=== PATIENT | male | born 1940 | race Caucasian/White ===

== ENCOUNTER 2025-04-01 22:43 | Inpatient (IN) ==
[2025-04-01 23:50] LABS: Appearance Urine Clear (Clear); Bacteria Urine Automated None Seen (None Seen); Cast Urine Automated 0-2 /lpf (0-2); Epithelial Cell Urine Auto 0-2 /hpf (0-2); Glucose Urine UA 3+ (Negative); RBC Urine Automated 0-2 /hpf (0-2); WBC Urine Automated 0-5 /hpf (0-5)
[2025-04-01 23:58] LABS: Hematocrit (blood only) 44.7 % (42.0-52.0); Hemoglobin 15.6 g/dl (14.0-18.0); Immature Granulocytes # (auto) 0.01 K/uL (0.01-0.20); Immature Granulocytes % (auto) 0.2 %; Mean Corpuscular Hemoglobin 32.2 pg (25.0-34.0); Mean Corpuscular Volume 92.4 fL (80.0-100.0); Platelet Count 164 K/uL (130-400); RDW Standard Deviation 44.1 fL (36.4-46.3); Red Blood Count 4.84 M/uL (4.70-6.10); White Blood Count 6.14 K/ul (4.8-10.8)
[2025-04-01 23:59] LABS: Base Excess VBG 1.0 mEq/L; HCO3 VBG 26 mmol/L; Oxygen Saturation VBG 90.9 %; PCO2 VBG 42 mmHg (38-50); PO2 VBG 57 mmHg; pH VBG 7.40 (7.36-7.41)
[2025-04-02 00:06] LABS: Alanine Aminotransferase 13.0 U/L (7-52); Albumin Globulin Ratio 1.2 (0.9-2); Alkaline Phosphatase 63.0 U/L (34-104); Anion Gap 10.0 (3-11); Bilirubin,Total 0.7 mg/dl (0.2-1.0); Blood Urea Nitrogen 20.0 mg/dl (6-23); Calcium 9.2 mg/dl (8.6-10.3); Carbon Dioxide 24.0 mmol/L (21-32); Chloride 102.0 mmol/L (98-107); Creatinine Clr Calc Pharmacy 48.4 ml/min; Globulin 3.4 gm/dl (2.5-4.0); Glucose 189.0 mg/dl (70-99(Fasting)); Lipase 57.0 U/L (11-82); Magnesium 2.0 mg/dl (1.7-2.4); Potassium 4.3 mmol/L (3.5-5.1); Sodium 136.0 mmol/L (136-145); Total Protein 7.6 gm/dl (6.0-8.3)
[2025-04-02 00:21] LABS: Thyroid Stimulating Hormone 1.885 uIu/ml (0.300-4.500)
[2025-04-02 00:26] LABS: INR 1.0 (0.9-1.1); Prothrombin Time 11.2 Seconds (9.0-12.0)
--- NOTE | 2025-04-02 00:35 | Emergency Department Note ---
Impression & Plan Dyspnea, Confusion, Abnormal ECG ED Provider Note ED Provider Note NAME: LIYAH NEVAREZ AGE:85 SEX: Male : 1940 ARRIVES VIA: private vehicle INFORMANT: Patient ED PROVIDER(s): Pau Haddad DO CHIEF COMPLAINT: difficulty breathing HPI: This is an 85-year-old male who presents emergency department with his at bedside due to concern for difficulty breathing. Patient states he is had increased cough and increased phlegm over the last several weeks. He denies fevers or chills. He states his breathing is harder when he lays down. He states the phlegm is typically clear or white, no hemoptysis noted. He denies any chest pain, abdominal pain, vomiting, change in urine or change in stools, or leg swelling. No recent change in medications or known sick contacts. No history of asthma or COPD. No trouble with seasonal allergies typically. at bedside also states he has been more confused in the last 2 weeks. She states that his breathing appears irregular at times and he will suddenly gasp. PAST MEDICAL HISTORY:See Below PAST SURGICAL HISTORY:See Below FAMILY HISTORY:See Below SOCIAL HISTORY:See Below HOME MEDICATIONS:See Below ALLERGIES:See Below VITALS:See Below PHYSICAL EXAMINATION: GENERAL: alert, well appearing, well nourished, no distress, non-toxic EYE EXAM: normal conjunctiva, PERRL and EOM's grossly intact OROPHARYNX: no exudate, no erythema, lips, buccal mucosa, and tongue normal and mucous membranes are moist NECK: supple, no nuchal rigidity, no adenopathy, non-tender LUNGS: Clear to auscultation. Normal chest wall mechanics, no w/r/r, irregular breathing pattern ranging from 6-17 with intermittent gasping HEART: no murmurs, S1 normal and S2 normal ABDOMEN: abdomen soft, non-tender, normo-active bowel sounds, no masses, no rebound or guarding. SKIN: no rashes, petechiae, orbruising UPPER EXTREMITIES: upper extremities are grossly normal. FROM, nml pulses b/l. LOWER EXTREMITIES: No pitting edema. FROM, nml pulses b/l. NEURO EXAM: Patient can answer questions, has difficulty remembering medical history and recent chronology of events, intermittently appears dazed, cranial nerves II-XII grossly intact, normal speech, no facial droop,nogross weakness of arms, no gross weakness of legs. Gross sensation intact. No ataxia. Vital Signs: reviewed and remarkable Differential Diagnosis: CVA/TIA, ICH, SIENNA, PNA, UTI, medication ADR, bacteremia/sepsis, occult trauma, hypoxia, hypercapnia, electrolyte abnormality, as well as others were considered MEDICAL DECISION MAKING: This is an 85-year-old male presents emergency department with at bedside due to concern for confusion and difficulty breathing. Patient was afebrile and hemodynamically stable. Labs drawn and sent, IV established, EKG and chest x- ray performed at bedside and interpreted by me and the patient was monitored in telemetry. Nasal swab obtained and sent additionally. Due to reported confusion by , patient sent for CT of head additionally. Patient's labs and imaging here are reassuring including negative troponin, negative BNP, negative bio fire. 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 Patient with no prior pulmonary history. Due to concern for confusion and irregular breathing, I discussed with the further inpatient evaluation and she was in agreement. Case discussed with the hospitalist team for additional evaluation and management. Consultation(s): 0200: Discussed with Dr. Trejo, [facility] hospitalist team, for additional evaluation. ER Treatment Provided: See below Diagnostics Interpreted By Me: -ECG: Normal sinus at 76 with first-degree AV block, right bundle branch block, normal QTc, nonspecific ST/T wave changes EKG #2: Normal sinus at 69 with a first-degree AV block, right bundle branch block, normal QTc, ST depression noted in V3 through V6 which is new compared to prior -Cardiac Monitoring: An order was placed for continuous cardiac monitoring. The monitor shows a rate of 72 with normal sinus rhythm. -Laboratory studies: As stated above and show below. -Imaging studies: X-ray Chest: A single view study of the chest was reviewed and was negative for cardiomegaly, focal infiltrate, effusion, pulmonary edema, or wide mediastinum. ct head: no ich Triage Nursing Note Reviewed Prior/Outside Records Reviewed Past Med/Surg History Problem List (Updated 04/02/25 @ 01:54 by Pau Haddad DO) Abnormal ECG (Acute) Confusion (Acute) Dyspnea (Acute) Diabetes (Acute) Hypertension (Acute) Hyperlipidemia (Acute) Chills (Acute) Cholelithiasis (Acute) Influenza-like symptoms (Acute) Social History Smoking Status: Unknown if ever smoked Tobacco Type: Smokeless Tobacco (Dip or Chew) Second Hand Exposure: No; Do You Dip or Chew Tobacco: No; Hx Alcohol Use: No Hx Substance Use: No Preferred Language: German Communication Ability: Effective 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 Beliefs That Will Affect Care: None Current Living Situation: Spouse Feels Safe at Home: Yes Assistive Devices: None Allergies Allergies Allergy/AdvReac Type Severity Reaction Status Date / Time Penicillins Allergy Mild COLD Verified 04/01/25 22:56 BLISTERS latex AdvReac Intermediate SEE COMMENT Verified 04/01/25 23:34 Home Meds Home Medications Medication Instructions Recorded Confirmed atenolol 25 mg tablet 12.5 mg PO DAILY 04/01/25 04/01/25 atorvastatin 40 mg tablet 40 mg PO DAILY 04/01/25 04/01/25 cholecalciferol (vitamin D3) 25 25 mcg PO DAILY 04/01/25 04/01/25 mcg (1,000 unit) capsule (Vitamin D3) dapagliflozin propanediol 10 mg 10 mg PO DAILY 04/01/25 04/01/25 tablet (Farxiga) dulaglutide 4.5 mg/0.5 mL 4.5 mg subcut WK 04/01/25 04/01/25 subcutaneous pen injector (Trulicity) escitalopram oxalate 10 mg tablet 10 mg PO DAILY 04/01/25 04/01/25 famotidine 20 mg tablet 20 mg PO DAILY 04/01/25 04/01/25 ipratropium bromide 21 mcg (0.03 2 spray intranasal TID PRN Runny 04/01/25 04/01/25 %) nasal spray Nose metformin 500 mg tablet,extended 500 mg PO BID 04/01/25 04/01/25 release 24 hr thiamine HCl (vitamin B1) 100 mg 100 mg PO DAILY 04/01/25 04/01/25 tablet (Vitamin B-1) trazodone 50 mg tablet 150 mg PO HS 04/01/25 04/01/25 Results & Data (ED) Vital Signs Vital Signs - 24 hr 04/01/25 22:48 04/01/25 22:58 04/01/25 22:58 Temperature 37 C Temperature Source Temporal Artery Scan Pulse Rate 79 77 Respiratory Rate 16 Respiratory Effort / Characteristics Non-Labored Spontaneous Non-Labored Respiratory Depth Normal Normal Respiratory Pattern Regular Blood Pressure 152/89 H Blood Pressure [Right Arm] Blood Pressure Mean 110 Blood Pressure Mean [Right Arm] Pulse Oximetry 96 Oxygen Delivery Method Room Air Nasal Cannula Room Air Sepsis Recent Fever Within 48 Hours No Sepsis New/Unexplained Change in Mental Status Yes Sepsis Action Taken by Nursing No Action Required 04/01/25 23:01 04/01/25 23:04 04/01/25 23:30 Temperature 36.8 C Temperature Source Oral Pulse Rate 73 Respiratory Rate 18 12 Respiratory Effort / Characteristics Spontaneous Respiratory Depth Normal Respiratory Pattern Regular Blood Pressure 175/91 H Blood Pressure [Right Arm] 161/100 H Blood Pressure Mean 112 Blood Pressure Mean [Right Arm] 120 Pulse Oximetry 97 97 95 Oxygen Delivery Method Room Air Room Air Sepsis Recent Fever Within 48 Hours Sepsis New/Unexplained Change in Mental Status Sepsis Action Taken by Nursing 04/01/25 23:42 04/02/25 00:30 04/02/25 01:00 Temperature Temperature Source Pulse Rate 76 68 69 Respiratory Rate 15 14 12 Respiratory Effort / Characteristics Respiratory Depth Respiratory Pattern Blood Pressure 167/99 H 164/97 H Blood Pressure [Right Arm] Blood Pressure Mean 130 124 Blood Pressure Mean [Right Arm] Pulse Oximetry 96 98 Oxygen Delivery Method Sepsis Recent Fever Within 48 Hours Sepsis New/Unexplained Change in Mental Status Sepsis Action Taken by Nursing Laboratory Data 04/02/25 04:10 04/02/25 04:10 Lab Results 04/01/25 04/01/25 04/01/25 Range/Units 23:02 23:06 23:10 WBC 6.14 (4.8-10.8) K/ul RBC 4.84 (4.70-6.10) M/uL Hgb 15.6 (14.0-18.0) g/dl Hct 44.7 (42.0-52.0) % MCV 92.4 (80.0-100.0) fL MCH 32.2 (25.0-34.0) pg MCHC 34.9 (32.0-36.0) g/dL RDW Std Deviation 44.1 (36.4-46.3) fL RDW Coeff of Rudy 13.0 (11.5-14.5) % Plt Count 164 (130-400) K/uL MPV 9.8 (9.4-12.4) fL Immature Gran % (Auto) 0.2 % Neut % (Auto) 49.1 % Lymph % (Auto) 38.6 % [place] % (Auto) 9.0 % Eos % (Auto) 2.4 % Baso % (Auto) 0.7 % Neut # (Auto) 3.02 (1.40-6.50) K/uL Lymph # (Auto) 2.37 (1.20-3.40) K/uL [place] # (Auto) 0.55 (0.11-0.59) K/uL Eos # (Auto) 0.15 (0.00-0.50) K/uL Baso # (Auto) 0.04 (0.00-0.20) K/uL Immature Gran # (Auto) 0.01 (0.01-0.20) K/uL PT 11.2 (9.0-12.0) Seconds INR 1.0 (0.9-1.1) VBG pH (7.36-7.41) VBG pCO2 (38-50) mmHg VBG pO2 mmHg VBG HCO3 mmol/L VBG O2 Saturation % VBG Base Excess mEq/L Sodium 136 (136-145) mmol/L Potassium 4.3 (3.5-5.1) mmol/L Chloride 102 (98-107) mmol/L Carbon Dioxide 24 (21-32) mmol/L Anion Gap 10 (3-11) BUN 20 (6-23) mg/dl Creatinine 1.21 (0.6-1.4) mg/dl Est Cr Clr Drug Dosing 48.4 ml/min eGFR 59.04 BUN/Creatinine Ratio 16.5 (10-20) Glucose 189 H (70-99(Fasting)) mg/dl POC Glucose 174 H (70-99) mg/dl Calcium 9.2 (8.6-10.3) mg/dl Magnesium 2.0 (1.7-2.4) mg/dl Total Bilirubin 0.7 (0.2-1.0) mg/dl AST 23 (13-39) U/L ALT 13 (7-52) U/L Alkaline Phosphatase 63 (34-104) U/L Troponin I High Sens 8.7 (0-20) pg/ml B-Natriuretic Peptide (0-100) pg/ml Total Protein 7.6 (6.0-8.3) gm/dl Albumin 4.2 (3.4-5.0) gm/dl Globulin 3.4 (2.5-4.0) gm/dl Albumin/Globulin Ratio 1.2 (0.9-2) Lipase 57 (11-82) U/L TSH 1.885 (0.300-4.500) uIu/ml Urine Color Yellow Urine Appearance Clear (Clear) Urine pH 5.5 (4.5-7.5) Ur Specific [place] 1.029 (1.000-1.030) Urine Protein 1+ H (Negative) Urine Glucose (UA) 3+ H (Negative) Urine Ketones Negative (Negative) Urine Blood Negative (Negative) Urine Nitrite Negative (Negative) Urine Bilirubin Negative (Negative) Urine Urobilinogen Negative (Negative) Ur Leukocyte Esterase Negative (Negative) Urine WBC (Auto) 0-5 (0-5) /hpf Urine RBC (Auto) 0-2 (0-2) /hpf U Hyaline Cast (Auto) 0-2 (0-2) /lpf U Epithel Cells (Auto) 0-2 (0-2) /hpf Urine Bacteria (Auto) None Seen (None Seen) Urine Comment Adenovirus (PCR) (NotDetected) B. pertussis DNA (PCR) (NotDetected) B.parapertussis DNA PCR (NotDetected) C. pneumoniae DNA (PCR) (NotDetected) Coronavirus OC43 (PCR) (NotDetected) Coronavirus HKU1 (PCR) (NotDetected) Coronavirus 229E (PCR) (NotDetected) SARS-CoV-2 (PCR) (NotDetected) Coronavirus NL63 (PCR) (NotDetected) Human Metapneumovir PCR (NotDetected) Influenza Type A (PCR) (NotDetected) Influenza Type B (PCR) (NotDetected) M. pneumoniae (PCR) (NotDetected) Parainfluenza 1 (PCR) (NotDetected) Parainfluenza 2 (PCR) (NotDetected) Parainfluenza 3 (PCR) (NotDetected) Parainfluenza 4 (PCR) (NotDetected) RSV (PCR) (NotDetected) Entero/Rhino (PCR) (NotDetected) 04/01/25 04/02/25 Range/Units 23:38 01:18 WBC (4.8-10.8) K/ul RBC (4.70-6.10) M/uL Hgb (14.0-18.0) g/dl Hct (42.0-52.0) % MCV (80.0-100.0) fL MCH (25.0-34.0) pg MCHC (32.0-36.0) g/dL RDW Std Deviation (36.4-46.3) fL RDW Coeff of Rudy (11.5-14.5) % Plt Count (130-400) K/uL MPV (9.4-12.4) fL Immature Gran % (Auto) % Neut % (Auto) % Lymph % (Auto) % [place] % (Auto) % Eos % (Auto) % Baso % (Auto) % Neut # (Auto) (1.40-6.50) K/uL Lymph # (Auto) (1.20-3.40) K/uL [place] # (Auto) (0.11-0.59) K/uL Eos # (Auto) (0.00-0.50) K/uL Baso # (Auto) (0.00-0.20) K/uL Immature Gran # (Auto) (0.01-0.20) K/uL PT (9.0-12.0) Seconds INR (0.9-1.1) VBG pH 7.40 (7.36-7.41) VBG pCO2 42 (38-50) mmHg VBG pO2 57 mmHg VBG HCO3 26 mmol/L VBG O2 Saturation 90.9 % VBG Base Excess 1.0 mEq/L Sodium (136-145) mmol/L Potassium (3.5-5.1) mmol/L Chloride (98-107) mmol/L Carbon Dioxide (21-32) mmol/L Anion Gap (3-11) BUN (6-23) mg/dl Creatinine (0.6-1.4) mg/dl Est Cr Clr Drug Dosing ml/min eGFR BUN/Creatinine Ratio (10-20) Glucose (70-99(Fasting)) mg/dl POC Glucose (70-99) mg/dl Calcium (8.6-10.3) mg/dl Magnesium (1.7-2.4) mg/dl Total Bilirubin (0.2-1.0) mg/dl AST (13-39) U/L ALT (7-52) U/L Alkaline Phosphatase (34-104) U/L Troponin I High Sens 9.2 (0-20) pg/ml B-Natriuretic Peptide 26 (0-100) pg/ml Total Protein (6.0-8.3) gm/dl Albumin (3.4-5.0) gm/dl Globulin (2.5-4.0) gm/dl Albumin/Globulin Ratio (0.9-2) Lipase (11-82) U/L TSH (0.300-4.500) uIu/ml Urine Color Urine Appearance (Clear) Urine pH (4.5-7.5) Ur Specific [place] (1.000-1.030) Urine Protein (Negative) Urine Glucose (UA) (Negative) Urine Ketones (Negative) Urine Blood (Negative) Urine Nitrite (Negative) Urine Bilirubin (Negative) Urine Urobilinogen (Negative) Ur Leukocyte Esterase (Negative) Urine WBC (Auto) (0-5) /hpf Urine RBC (Auto) (0-2) /hpf U Hyaline Cast (Auto) (0-2) /lpf U Epithel Cells (Auto) (0-2) /hpf Urine Bacteria (Auto) (None Seen) Urine Comment Adenovirus (PCR) Not Detected (NotDetected) B. pertussis DNA (PCR) Not Detected (NotDetected) B.parapertussis DNA PCR Not Detected (NotDetected) C. pneumoniae DNA (PCR) Not Detected (NotDetected) Coronavirus OC43 (PCR) Not Detected (NotDetected) Coronavirus HKU1 (PCR) Not Detected (NotDetected) Coronavirus 229E (PCR) Not Detected (NotDetected) SARS-CoV-2 (PCR) Not Detected (NotDetected) Coronavirus NL63 (PCR) Not Detected (NotDetected) Human Metapneumovir PCR Not Detected (NotDetected) Influenza Type A (PCR) Not Detected (NotDetected) Influenza Type B (PCR) Not Detected (NotDetected) M. pneumoniae (PCR) Not Detected (NotDetected) Parainfluenza 1 (PCR) Not Detected (NotDetected) Parainfluenza 2 (PCR) Not Detected (NotDetected) Parainfluenza 3 (PCR) Not Detected (NotDetected) Parainfluenza 4 (PCR) Not Detected (NotDetected) RSV (PCR) Not Detected (NotDetected) Entero/Rhino (PCR) Not Detected (NotDetected) Administered Medications Insulin Aspart (Insulin Aspart Per Unit Charge) 0 units SC ACHS MAURICE Stop: 05/02/25 04:00 Last Admin: 04/02/25 05:04 Dose: 1 units Documented By: LUTHER Co-signed By: HD Discontinued Medications Albuterol (Albut/Ipratrop 3mg/0.5mg Neb 3 Ml Vial) 3 ml NEB NOW STA; Protocol Stop: 04/02/25 04:25 Last Admin: 04/02/25 04:36 Dose: 3 ml Documented By: YVETTE Ioversol (Optiray 320 125ml) 125 ml IV ONCE ONE Stop: 04/02/25 03:27 Last Admin: 04/02/25 03:26 Dose: 118 ml Documented By: SHERYL Lisinopril (') 2.5 mg PO ONE STA Stop: 04/02/25 02:51 Last Admin: 04/02/25 03:20 Dose: 2.5 mg Documented By: BALDO Losartan Potassium (Losartan Potassium 25 Mg Tab) 25 mg PO NOW STA Stop: 04/02/25 04:16 Last Admin: 04/02/25 04:59 Dose: 25 mg Documented By: LUTHER Metoprolol Tartrate (Metoprolol Tartrate 1 Mg/Ml Vial) 2.5 mg IV NOW STA Stop: 04/02/25 02:02 Last Admin: 04/02/25 02:27 Dose: 2.5 mg Documented By: BALDO Pantoprazole Sodium (Pantoprazole 40 Mg Tab) 40 mg PO NOW STA Stop: 04/02/25 04:23 Last Admin: 04/02/25 04:59 Dose: 40 mg Documented By: LUTHER Imaging Data Radiologist's Impression: Chest X-Ray 04/01/25 23:31 Exam(s): XR CXR 1 VIEW EXAM: XR Chest, 1 View CLINICAL HISTORY: Reason for exam: sob. TECHNIQUE: Frontal view of the chest. COMPARISON: Chest x-ray 09/03/2024. FINDINGS: Lungs/Pleural space: Stable pleural thickening right lower lung laterally. No focal infiltrate or new finding. No pleural effusion or pneumothorax. Heart: Stable cardiomegaly. Mediastinum: Unremarkable. Bones/Soft Tissues: No acute abnormality. IMPRESSION: 1. No acute process, and no change. Electronically signed by: Corry Murrell M.D. 04/02/25 01:[address] 04/01/25 23:31 EXAM: CT head/brain wo con CLINICAL HISTORY: ams TECHNIQUE: Axial non-contrast CT scan of the brain was performed from the skull base to the high parietal region. One of the following dose reduction techniques were utilized for this exam: Automated exposure control, adjustment of the mA and/or kV according to patient size, use of iterative reconstruction. CTDI: 37.19 mGy, DLP: 625.80 mGy.cm. COMPARISON: CT 09/03/2024 FINDINGS: Brain Parenchyma: Normal attenuation of the cerebellum and brainstem. No evidence of acute infarct, hemorrhage, or mass effect. Bilateral punctate basal ganglia calcification. stable Hypodensities are noted in bilateral periventricular white matter. Microvascular ischemic changes. stable. Ventricular System and Subarachnoid Spaces: The ventricles, basilar cisterns and sulci are prominent. Age-related cerebral atrophy No evidence of subarachnoid hemorrhage or extra-axial fluid collections. Cerebellum and Brainstem: No masses, lesions, or areas of abnormal density. Orbits: Normal appearance of the globes, optic nerves, and extraocular muscles. No evidence of orbital masses or abnormal density. Sinuses: Minimal mucosal thickening is noted in the left maxillary sinus. The rest of the paranasal sinuses are unremarkable Mastoid Air Cells: Clear mastoid air cells. No evidence of mastoiditis. Skull: Normal skull morphology. IMPRESSION: 1. No acute intracranial hemorrhage or established infarct. 2. Microvascular ischemic changes and cerebral atrophy. 3. No significant interval change. Early changes of a stroke may not be detected on a CT scan. If strong clinical suspicion of stroke, MRI DWI brain is recommended. Electronically signed by Peterson Barboza 04-02-2025 01:03 AM Discharge Plan Visit Data Chief Complaint: Shortness of Breath/Dyspnea Stated Complaint: SOB, CONFUSION ED Provider: Pau Haddad Discharge Problem: Dyspnea, Confusion, Abnormal ECG Patient Disposition: Admitted As Inpatient Condition: Fair Discharge Instructions Interventions: ED Discharge Assessment Last Done: 04/02/25 03:36
[2025-04-02 00:44] LABS: Chlamydia pneumoniae PCR Not Detected (NotDetected); Coronavirus 229E PCR Not Detected (NotDetected); Coronavirus CoV-2 (COVID19)PCR Not Detected (NotDetected); Coronavirus HKU1 PCR Not Detected (NotDetected); Coronavirus NL63 PCR Not Detected (NotDetected); Coronavirus OC43PCR Not Detected (NotDetected); Human Metapneumovirus PCR Not Detected (NotDetected); Parainfluenza Virus 1 PCR Not Detected (NotDetected); Parainfluenza Virus 2 PCR Not Detected (NotDetected); Parainfluenza Virus 3 PCR Not Detected (NotDetected); Parainfluenza Virus 4 PCR Not Detected (NotDetected); Respiratory Syncytial VirusPCR Not Detected (NotDetected); Rhinovirus/Enterovirus PCR Not Detected (NotDetected)
--- NOTE | 2025-04-02 01:03 | CT Scan Report ---
EXAM: CT head/brain wo con CLINICAL HISTORY: ams TECHNIQUE: Axial non-contrast CT scan of the brain was performed from the skull base to the high parietal region. One of the following dose reduction techniques were utilized for this exam: Automated exposure control, adjustment of the mA and/or kV according to patient size, use of iterative reconstruction. CTDI: 37.19 mGy, DLP: 625.80 mGy.cm. COMPARISON: CT 09/03/2024 FINDINGS: Brain Parenchyma: Normal attenuation of the cerebellum and brainstem. No evidence of acute infarct, hemorrhage, or mass effect. Bilateral punctate basal ganglia calcification. stable Hypodensities are noted in bilateral periventricular white matter. Microvascular ischemic changes. stable. Ventricular System and Subarachnoid Spaces: The ventricles, basilar cisterns and sulci are prominent. Age-related cerebral atrophy No evidence of subarachnoid hemorrhage or extra-axial fluid collections. Cerebellum and Brainstem: No masses, lesions, or areas of abnormal density. Orbits: Normal appearance of the globes, optic nerves, and extraocular muscles. No evidence of orbital masses or abnormal density. Sinuses: Minimal mucosal thickening is noted in the left maxillary sinus. The rest of the paranasal sinuses are unremarkable Mastoid Air Cells: Clear mastoid air cells. No evidence of mastoiditis. Skull: Normal skull morphology. IMPRESSION: 1. No acute intracranial hemorrhage or established infarct. 2. Microvascular ischemic changes and cerebral atrophy. 3. No significant interval change. Early changes of a stroke may not be detected on a CT scan. If strong clinical suspicion of stroke, MRI DWI brain is recommended. Electronically signed by Peterson Barboza 04-02-2025 01:03 AM
--- NOTE | 2025-04-02 01:23 | XRay Report ---
Exam(s): XR CXR 1 VIEW EXAM: XR Chest, 1 View CLINICAL HISTORY: Reason for exam: sob. TECHNIQUE: Frontal view of the chest. COMPARISON: Chest x-ray 09/03/2024. FINDINGS: Lungs/Pleural space: Stable pleural thickening right lower lung laterally. No focal infiltrate or new finding. No pleural effusion or pneumothorax. Heart: Stable cardiomegaly. Mediastinum: Unremarkable. Bones/Soft Tissues: No acute abnormality. IMPRESSION: 1. No acute process, and no change. Electronically signed by: Corry Murrell M.D. 04/02/25 01:22 AM
--- NOTE | 2025-04-02 02:07 | History & Physical Report ---
Date of Service April 02, 2025 Assessment & Plan (1) Dyspnea: Plan: Assessment and plan below following discussion of case with ED provider and reviewing patient history/pertinent normal/abnormal diagnostic test results. 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 Basal bolus insulin, ISS BG goal 110-140, carb count coverage PT OT eval DVT prophylaxis. Lovenox subcu Full code Patient requesting updates from providers. Ms. Kamila Mishannandaphnie, contact #[phone]. Text document was generated using [employer] voice recognition software. It may contain grammatical or spelling errors. Kindly contact undersigned for clarification of any documentation item in question. History of Present Illness Chief Complaint: SOB, confusion Primary Care Provider: Sasha Martin, History obtained from patient, family, and records. Limited history from patient secondary to disoriented state. Medical history significant for hypertension, hyperlipidemia, DM2 on oral medications, GERD, mood disorder, allergic rhinitis, past alcohol use. Patient has had worsening congestion/phlegm symptoms over the last few months as per family. Sensation of choking disrupting sleep. Minimal improvement with outpatient courses of Flonase, ipratropium nasal spray, Claritin for possible allergic rhinitis as per . Last few days, patient noted to be more confused. Patient complaining of SOB without chest pain. Congestion symptoms worse. Denies fluid retention. Denies headache symptoms. Denies abdominal pain. No new medications. Patient not sleeping well at night as per . No witnessed apneic episodes at home although patient and have separate bedrooms. SBP 170s at home tonight which is unusual as per . Patient brought to ER for evaluation. Highest SBP of 190s documented at the ER. 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 Allergies Allergy/AdvReac Type Severity Reaction Status Date / Time Penicillins Allergy Mild COLD Verified 04/01/25 22:56 BLISTERS latex AdvReac Intermediate SEE COMMENT Verified 04/01/25 23:34 Home Medications Medication Instructions Recorded Confirmed Type atenolol 25 mg tablet 12.5 mg PO DAILY 04/01/25 04/01/25 History atorvastatin 40 mg tablet 40 mg PO DAILY 04/01/25 04/01/25 History cholecalciferol (vitamin D3) 25 25 mcg PO DAILY 04/01/25 04/01/25 History mcg (1,000 unit) capsule (Vitamin D3) dapagliflozin propanediol 10 mg 10 mg PO DAILY 04/01/25 04/01/25 History tablet (Farxiga) dulaglutide 4.5 mg/0.5 mL 4.5 mg subcut WK 04/01/25 04/01/25 History subcutaneous pen injector (Trulicity) escitalopram oxalate 10 mg tablet 10 mg PO DAILY 04/01/25 04/01/25 History famotidine 20 mg tablet 20 mg PO DAILY 04/01/25 04/01/25 History ipratropium bromide 21 mcg (0.03 2 spray intranasal TID PRN Runny 04/01/25 04/01/25 History %) nasal spray Nose metformin 500 mg tablet,extended 500 mg PO BID 04/01/25 04/01/25 History release 24 hr thiamine HCl (vitamin B1) 100 mg 100 mg PO DAILY 04/01/25 04/01/25 History tablet (Vitamin B-1) trazodone 50 mg tablet 150 mg PO HS 04/01/25 04/01/25 History Past Med/Surg History Problem List (Updated 04/02/25 @ 01:54 by Pau Haddad DO) Abnormal ECG (Acute) Confusion (Acute) Dyspnea (Acute) Diabetes (Acute) Hypertension (Acute) Hyperlipidemia (Acute) Chills (Acute) Cholelithiasis (Acute) Influenza-like symptoms (Acute) Social History Smoking Status: Current every day smoker Tobacco Type: Smokeless Tobacco (Dip or Chew) Preferred Language: Romansh Feels Safe at Home: Yes Review of Systems Review of Systems: As per HPI, all other systems reviewed and negative Physical Exam Physical Exam: GENERAL: Disoriented, pleasant, no respiratory distress SKIN: Normal color, warm HEENT: Alopecia, pink palpebral conjunctivae, no ptosis, dry buccal mucosa NECK : Supple, no tenderness CHEST : Decreased breath sounds, no wheezes, no tenderness HEART : RRR, no obvious murmurs ABDOMEN: Some distention, nontender EXTREMITIES : No LE swelling/tenderness, palpable pulses, no other conspicuous deformities noted NEUROLOGIC : Disoriented, no facial asymmetry, no other gross focality Results & Data Results & Data Vital Signs (Past 12 Hours) Vital Signs Temp Pulse Resp BP BP Pulse Ox O2 Del Method 04/02/25 01:00 69 12 164/97 H 98 04/02/25 00:30 68 14 167/99 H 96 04/01/25 23:42 76 15 04/01/25 23:30 73 12 175/91 H 95 04/01/25 23:04 97 Room Air 04/01/25 23:01 36.8 C 18 161/100 H 97 Room Air 04/01/25 22:58 77 04/01/25 22:58 Room Air 04/01/25 22:48 37 C 79 16 152/89 H 96 Room Air, Nasal Cannula Laboratory Results Laboratory Results WBC 6.14 K/ul (4.8-10.8) 04/01/25 23:06 RBC 4.84 M/uL (4.70-6.10) 04/01/25 23:06 Hgb 15.6 g/dl (14.0-18.0) 04/01/25 23:06 Hct 44.7 % (42.0-52.0) 04/01/25 23:06 MCV 92.4 fL (80.0-100.0) 04/01/25 23:06 MCH 32.2 pg (25.0-34.0) 04/01/25 23:06 MCHC 34.9 g/dL (32.0-36.0) 04/01/25 23:06 RDW Std Deviation 44.1 fL (36.4-46.3) 04/01/25 23:06 RDW Coeff of Rudy 13.0 % (11.5-14.5) 04/01/25 23:06 Plt Count 164 K/uL (130-400) 04/01/25 23:06 MPV 9.8 fL (9.4-12.4) 04/01/25 23:06 Immature Gran % (Auto) 0.2 % 04/01/25 23:06 Neut % (Auto) 49.1 % 04/01/25 23:06 Lymph % (Auto) 38.6 % 04/01/25 23:06 Cowley % (Auto) 9.0 % 04/01/25 23:06 Eos % (Auto) 2.4 % 04/01/25 23:06 Baso % (Auto) 0.7 % 04/01/25 23:06 Neut # (Auto) 3.02 K/uL (1.40-6.50) 04/01/25 23:06 Lymph # (Auto) 2.37 K/uL (1.20-3.40) 04/01/25 23:06 Cowley # (Auto) 0.55 K/uL (0.11-0.59) 04/01/25 23:06 Eos # (Auto) 0.15 K/uL (0.00-0.50) 04/01/25 23:06 Baso # (Auto) 0.04 K/uL (0.00-0.20) 04/01/25 23:06 Immature Gran # (Auto) 0.01 K/uL (0.01-0.20) 04/01/25 23:06 PT 11.2 Seconds (9.0-12.0) 04/01/25 23:06 INR 1.0 (0.9-1.1) 04/01/25 23:06 VBG pH 7.40 (7.36-7.41) 04/01/25 23:38 VBG pCO2 42 mmHg (38-50) 04/01/25 23:38 VBG pO2 57 mmHg 04/01/25 23:38 VBG HCO3 26 mmol/L 04/01/25 23:38 VBG O2 Saturation 90.9 % 04/01/25 23:38 VBG Base Excess 1.0 mEq/L 04/01/25 23:38 Sodium 136 mmol/L (136-145) 04/01/25 23:06 Potassium 4.3 mmol/L (3.5-5.1) 04/01/25 23:06 Chloride 102 mmol/L (98-107) 04/01/25 23:06 Carbon Dioxide 24 mmol/L (21-32) 04/01/25 23:06 Anion Gap 10 (3-11) 04/01/25 23:06 BUN 20 mg/dl (6-23) 04/01/25 23:06 Creatinine 1.21 mg/dl (0.6-1.4) 04/01/25 23:06 Est Cr Clr Drug Dosing 48.4 ml/min 04/01/25 23:06 eGFR 59.04 04/01/25 23:06 BUN/Creatinine Ratio 16.5 (10-20) 04/01/25 23:06 Glucose 189 mg/dl (70-99(Fasting)) H 04/01/25 23:06 POC Glucose 174 mg/dl (70-99) H 04/01/25 23:02 Calcium 9.2 mg/dl (8.6-10.3) 04/01/25 23:06 Magnesium 2.0 mg/dl (1.7-2.4) 04/01/25 23:06 Total Bilirubin 0.7 mg/dl (0.2-1.0) 04/01/25 23:06 AST 23 U/L (13-39) 04/01/25 23:06 ALT 13 U/L (7-52) 04/01/25 23:06 Alkaline Phosphatase 63 U/L (34-104) 04/01/25 23:06 Troponin I High Sens 9.2 pg/ml (0-20) 04/02/25 01:18 B-Natriuretic Peptide 26 pg/ml (0-100) 04/01/25 23:38 Total Protein 7.6 gm/dl (6.0-8.3) 04/01/25 23:06 Albumin 4.2 gm/dl (3.4-5.0) 04/01/25 23:06 Globulin 3.4 gm/dl (2.5-4.0) 04/01/25 23:06 Albumin/Globulin Ratio 1.2 (0.9-2) 04/01/25 23:06 Lipase 57 U/L (11-82) 04/01/25 23:06 TSH 1.885 uIu/ml (0.300-4.500) 04/01/25 23:06 Urine Color Yellow 04/01/25 23:10 Urine Appearance Clear (Clear) 04/01/25 23:10 Urine pH 5.5 (4.5-7.5) 04/01/25 23:10 Ur Specific [place] 1.029 (1.000-1.030) 04/01/25 23:10 Urine Protein 1+ (Negative) H 04/01/25 23:10 Urine Glucose (UA) 3+ (Negative) H 04/01/25 23:10 Urine Ketones Negative (Negative) 04/01/25 23:10 Urine Blood Negative (Negative) 04/01/25 23:10 Urine Nitrite Negative (Negative) 04/01/25 23:10 Urine Bilirubin Negative (Negative) 04/01/25 23:10 Urine Urobilinogen Negative (Negative) 04/01/25 23:10 Ur Leukocyte Esterase Negative (Negative) 04/01/25 23:10 Urine WBC (Auto) 0-5 /hpf (0-5) 04/01/25 23:10 Urine RBC (Auto) 0-2 /hpf (0-2) 04/01/25 23:10 U Hyaline Cast (Auto) 0-2 /lpf (0-2) 04/01/25 23:10 U Epithel Cells (Auto) 0-2 /hpf (0-2) 04/01/25 23:10 Urine Bacteria (Auto) None Seen (None Seen) 04/01/25 23:10 Urine Comment 04/01/25 23:10 Adenovirus (PCR) Not Detected (NotDetected) 04/01/25 23:38 B. pertussis DNA (PCR) Not Detected (NotDetected) 04/01/25 23:38 B.parapertussis DNA PCR Not Detected (NotDetected) 04/01/25 23:38 C. pneumoniae DNA (PCR) Not Detected (NotDetected) 04/01/25 23:38 Coronavirus OC43 (PCR) Not Detected (NotDetected) 04/01/25 23:38 Coronavirus HKU1 (PCR) Not Detected (NotDetected) 04/01/25 23:38 Coronavirus 229E (PCR) Not Detected (NotDetected) 04/01/25 23:38 SARS-CoV-2 (PCR) Not Detected (NotDetected) 04/01/25 23:38 Coronavirus NL63 (PCR) Not Detected (NotDetected) 04/01/25 23:38 Human Metapneumovir PCR Not Detected (NotDetected) 04/01/25 23:38 Influenza Type A (PCR) Not Detected (NotDetected) 04/01/25 23:38 Influenza Type B (PCR) Not Detected (NotDetected) 04/01/25 23:38 M. pneumoniae (PCR) Not Detected (NotDetected) 04/01/25 23:38 Parainfluenza 1 (PCR) Not Detected (NotDetected) 04/01/25 23:38 Parainfluenza 2 (PCR) Not Detected (NotDetected) 04/01/25 23:38 Parainfluenza 3 (PCR) Not Detected (NotDetected) 04/01/25 23:38 Parainfluenza 4 (PCR) Not Detected (NotDetected) 04/01/25 23:38 RSV (PCR) Not Detected (NotDetected) 04/01/25 23:38 Entero/Rhino (PCR) Not Detected (NotDetected) 04/01/25 23:38 Impressions Chest X-Ray 04/01/25 23:31 Exam(s): XR CXR 1 VIEW EXAM: XR Chest, 1 View CLINICAL HISTORY: Reason for exam: sob. TECHNIQUE: Frontal view of the chest. COMPARISON: Chest x-ray 09/03/2024. FINDINGS: Lungs/Pleural space: Stable pleural thickening right lower lung laterally. No focal infiltrate or new finding. No pleural effusion or pneumothorax. Heart: Stable cardiomegaly. Mediastinum: Unremarkable. Bones/Soft Tissues: No acute abnormality. IMPRESSION: 1. No acute process, and no change. Electronically signed by: Corry Murrell M.D. 04/02/25 01:[address] 04/01/25 23:31 EXAM: CT head/brain wo con CLINICAL HISTORY: ams TECHNIQUE: Axial non-contrast CT scan of the brain was performed from the skull base to the high parietal region. One of the following dose reduction techniques were utilized for this exam: Automated exposure control, adjustment of the mA and/or kV according to patient size, use of iterative reconstruction. CTDI: 37.19 mGy, DLP: 625.80 mGy.cm. COMPARISON: CT 09/03/2024 FINDINGS: Brain Parenchyma: Normal attenuation of the cerebellum and brainstem. No evidence of acute infarct, hemorrhage, or mass effect. Bilateral punctate basal ganglia calcification. stable Hypodensities are noted in bilateral periventricular white matter. Microvascular ischemic changes. stable. Ventricular System and Subarachnoid Spaces: The ventricles, basilar cisterns and sulci are prominent. Age-related cerebral atrophy No evidence of subarachnoid hemorrhage or extra-axial fluid collections. Cerebellum and Brainstem: No masses, lesions, or areas of abnormal density. Orbits: Normal appearance of the globes, optic nerves, and extraocular muscles. No evidence of orbital masses or abnormal density. Sinuses: Minimal mucosal thickening is noted in the left maxillary sinus. The rest of the paranasal sinuses are unremarkable Mastoid Air Cells: Clear mastoid air cells. No evidence of mastoiditis. Skull: Normal skull morphology. IMPRESSION: 1. No acute intracranial hemorrhage or established infarct. 2. Microvascular ischemic changes and cerebral atrophy. 3. No significant interval change. Early changes of a stroke may not be detected on a CT scan. If strong clinical suspicion of stroke, MRI DWI brain is recommended. Electronically signed by Peterson Barboza 04-02-2025 01:03 AM Diagnostic Findings EKG as per my interpretation :Rate 70, NSR, LAD, LAFB, RBBB, T wave inversion inferior and anterolateral leads
[2025-04-02] MEDS: METOPROLOL TARTRATE 1 MG/ML VIAL IV STA (02:27)
[2025-04-02] MEDS ORDERED: IPRATROPIUM BROMIDE NASAL SPRAY 0.03% 30 ML PRN (02:47)
[2025-04-02] MEDS ORDERED: PROMETHAZINE 6.25 MG/50.25 ML BAG IV PRN (02:49)
[2025-04-02] MEDS: ' PO STA (03:20)
[2025-04-02] MEDS: OPTIRAY 320 125ml IV ONE (03:26)
--- NOTE | 2025-04-02 03:53 | CT Scan Report ---
EXAM: CT sinus w con CLINICAL HISTORY: worsening congestion/secretions TECHNIQUE: Computed tomography of the paranasal sinuses was performed with intravenous contrast. Contiguous axial images were obtained. Reformatted coronal and sagittal images were also reviewed. CT scan was performed according to ALARA (as low as reasonable achievable). COMPARISON: None. FINDINGS: Minimal mucosal thickening is noted involving left maxillary sinus. - suggest sinusitis. Mild left sided nasal septum deviation with small bony spur formation. Rest of paranasal sinuses are well aerated with no soft tissue masses, air fluid levels, or significant mucosal thickening. The bony restrepo of the paranasal sinuses are intact. The nasal cavity is clear and the nasal septum is grossly midline. The temporomandibular joints articulate normally. The skull base foramina are unremarkable. Visualized mastoid air cells are well aerated. Orbital soft tissue structures and bony orbital restrepo are within normal limits. Within the limitations of technique, the visualized brain and suprahyoid soft tissues in the neck demonstrate no gross abnormality. IMPRESSION: Minimal mucosal thickening is noted involving left maxillary sinus. - suggest sinusitis. Mild left sided nasal septum deviation with small bony spur formation. Electronically signed by Abdulkadir Angel 04-02-2025 03:53 AM
[2025-04-02] MEDS ORDERED: GLUCAGON FOR INJ 1 MG VIAL SQ PRN (04:01)
[2025-04-02] MEDS ORDERED: DEXTROSE 50% 50 ML SYRINGE IV PRN (04:01)
[2025-04-02] MEDS ORDERED: CARBOHYDRATES FOR HYPOGLYCEMIA PO PRN (04:01)
[2025-04-02] MEDS ORDERED: GLUCOSE 40% GEL 15 GM TUBE PO PRN (04:01)
[2025-04-02] MEDS ORDERED: GLUCOSE 10 TAB/TUBE PO PRN (04:01)
--- NOTE | 2025-04-02 04:08 | CT Scan Report ---
EXAM: CT angio chest PE protocol CLINICAL HISTORY: sob TECHNIQUE: Contiguous 3.[address] angiographic images of the chest were acquired with the administration of intravenous contrast. Coronal and sagittal reconstructions were obtained. 118 ML OPTIRAY 320 was administered for post-contrast images. One of these 3D techniques was utilized: Maximum Intensity Pixel (MIP), 3D Reconstructed Images, Volume Rendered Images, Surface Shaded Rendering. One of the following dose reduction techniques was used for this exam: Automated exposure control, adjustment of the mA and/or kV according to patient size, and use of iterative reconstruction. CTDI: DLP: 1460.45 mGy.cm COMPARISON: X-ray 09/03/2024 reviewed. FINDINGS: Pulmonary Arteries: Pulmonary arteries are normal in size and opacification. No evidence of pulmonary embolism. No stenosis or filling defects. Aorta: The thoracic aorta is normal in caliber. No evidence of aneurysm, dissection, or significant atherosclerotic changes. The aortic arch and descending thoracic aorta are unremarkable. Superior Vena Cava (SVC) and Inferior Vena Cava (IVC): Normal opacification and caliber. No evidence of thrombus or obstruction. Mediastinum: No mediastinal mass or lymphadenopathy. Normal appearance of the thymus. Heart: Mild cardiomegaly. No pericardial effusion. Lungs: Minimal to mild right-sided pleural effusion with posterior basal atelectasis. Fibrotic band at the right middle lung lobes. Patchy mosaic attenuation of both lungs. No consolidation, nodules, or masses. No pleural effusion or thickening. Bones: Thoracic spondylodegenerative changes. Osteoarthropathy of the acromioclavicular joint, subluxation of the right glenohumeral articulation. Soft Tissues: Normal appearance of the visualized soft tissues. No abnormal masses or fluid collections. IMPRESSION: 1. No CT evidence of pulmonary embolism. 2. Minimal to mild right-sided pleural effusion with posterior basal atelectasis. (decreased) 3. Mild cardiomegaly. (unchanged). 4. Fibrotic band at the right middle lung lobes. (more demonstrated). 5. Patchy mosaic attenuation of both lungs, likely congestion. 6. No evidence of significant vascular abnormalities. Electronically signed by Peterson Barboza 04-02-2025 04:07 AM
[2025-04-02 04:27] LABS: Hematocrit (blood only) 44.4 % (42.0-52.0); Hemoglobin 15.1 g/dl (14.0-18.0); Immature Granulocytes # (auto) 0.01 K/uL (0.01-0.20); Immature Granulocytes % (auto) 0.1 %; Mean Corpuscular Hemoglobin 31.9 pg (25.0-34.0); Mean Corpuscular Volume 93.7 fL (80.0-100.0); Platelet Count 143 K/uL (130-400); RDW Standard Deviation 44.5 fL (36.4-46.3); Red Blood Count 4.74 M/uL (4.70-6.10); White Blood Count 6.76 K/ul (4.8-10.8)
[2025-04-02] MEDS: ALBUT/IPRATROP 3MG/0.5MG NEB 3 ML VIAL NEB STA (04:36)
[2025-04-02 04:43] LABS: Anion Gap 7.0 (3-11); Blood Urea Nitrogen 20.0 mg/dl (6-23); Calcium 9.0 mg/dl (8.6-10.3); Carbon Dioxide 27.0 mmol/L (21-32); Chloride 100.0 mmol/L (98-107); Creatinine Clr Calc Pharmacy 49.2 ml/min; Glucose 156.0 mg/dl (70-99(Fasting)); Potassium 4.2 mmol/L (3.5-5.1); Sodium 134.0 mmol/L (136-145)
[2025-04-02] MEDS: LOSARTAN POTASSIUM 25 MG TAB PO STA (04:59)
[2025-04-02] MEDS: INSULIN ASPART PER UNIT CHARGE SC SCH (05:04)
[2025-04-02] MEDS: ATORVASTATIN 40 MG TAB PO SCH (08:07)
[2025-04-02] MEDS: ATENOLOL 25 MG TABLET PO SCH (08:08)
[2025-04-02] MEDS: ENOXAPARIN INJ 40 MG/0.4 ML SYR SQ SCH (08:08)
[2025-04-02] MEDS: THIAMINE HCL 100 MG TAB PO SCH (08:08)
[2025-04-02] MEDS: LANTUS PER UNIT CHARGE SQ SCH (08:08)
[2025-04-02] MEDS: ESCITALOPRAM OXALATE 10 MG TAB PO SCH (08:08)
[2025-04-02] MEDS ORDERED: LABETALOL HCL IV 5 MG/ML 20ML IV PRN (08:13)
--- NOTE | 2025-04-02 08:21 | Electrocardiogram Report ---
Test Reason : Blood Pressure : */* mmHG Vent. Rate : 76 BPM Atrial Rate : 76 BPM P-R Int : 256 ms QRS Dur : 142 ms QT Int : 412 ms P-R-T Axes : * -15 -16 degrees QTcB Int : 463 ms Sinus rhythm with 1st degree A-V block Right bundle branch block Abnormal ECG When compared with ECG of 03-Sep-2024 17:21, Inverted T waves have replaced nonspecific T wave abnormality in Inferior leads T wave inversion no longer evident in Anterior leads Confirmed by Harinder Gonzalez ([id number]) on 04/02/2025 8:21:17 AM Referred By: REFERRED SELF Confirmed By: Harinder Gonzalez
[2025-04-02] MEDS: FAMOTIDINE 20 MG TAB PO SCH (08:44)
--- NOTE | 2025-04-02 13:04 | Communication Note ---
Date of Service: April 02, 2025 Patient was seen and examined at bedside. Pt was alert and oriented to place, person and situation at bedside exam today. Per RN, pt ate his food ok. Pt re ported last BM yesterday. 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 Patient complaining of SOB without chest pain. Pt noted to have worsening congestion/phlegm symptoms over the last few months as per family a/w sensation of choking disrupting sleep. Minimal improvement with outpatient courses of Flonase, ipratropium nasal spray, Claritin for possible allergic rhinitis as per . Patient not sleeping well at night as per . No witnessed apneic episodes at home although patient and have separate bedrooms. Shortness of breath: ruled out PE, ruled out heart failure. Concern for sleep apnea: pt noted to have sensation of choking disrupting sleep - sleep apnea vs worsening GERD Likely worsening GERD: Pt w/ worsening phlegm symptoms for last few month a/w sensation of choking disrupting sleep Likely Sinusitis x Lt maxillary: pt w/ cough/congestion symptoms at presentation. Has been on RA since presentation. Trop x2 neg, BNP 26, Pt denies chest pain. RPP neg. ECHO pending. CXR w/ no acute finding, CTA chest w/ no PE, no pneumonia. CT sinus: Minimal mucosal thickening is noted involving left maxillary sinus. - suggest sinusitis. No focal weakness, pt denies numbness and tingling. Encourage incentive spirometer, rocephin for sinusitis (plan for 7d Rx), continue to monitor. Will get nocturnal pulse Ox, recommend OP sleep study. Pt w/ minimal improvement in his phlegm symptoms w/ antiallergic Rx as OP, will trial PPI bid for concern of worsening GERD. R/o aspiration, CYCLE REPAIRER eval. Pt will likely benefit from OP GI eval. Palmer aspiration precaution. 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 Presenting CT Head w/ no acute finding. BP elevated at presentation. c/w home atenolol. Losartan added this admission, continue. Pt noted to be slightly agitated, trying to get out of bed. c/w 1to1 sitter. Will order harjeet olanzapine and melatonin w/ prn option for olanzapine. Other chronic medical conditions: Continue with/resume home meds as and when able. hyperlipidemia, on statin Rx DM2 on oral medications, suboptimal control as of recent hemoglobin A1c of 8.4 last December 2024, will get A1c in am past alcohol abuse PT OT eval DVT prophylaxis. Lovenox subcu Full code Patient Ms. Kamila Hodges, contact #[phone]. Updated over the phone on each of the points above, she voiced understanding. Text document was generated using [employer] voice recognition software. It may contain grammatical or spelling errors. Kindly contact undersigned for clarification of any documentation item in question. For detailed info on the patient refer to today's HnP note. Total time spent: 45 min
[2025-04-02] MEDS: cefTRIAXone SODIUM 2,000 MG/50 ML BAG IV SCH (14:47)
--- NOTE | 2025-04-02 17:44 | Electrocardiogram Report ---
Test Reason : Blood Pressure : */* mmHG Vent. Rate : 71 BPM Atrial Rate : 71 BPM P-R Int : 272 ms QRS Dur : 142 ms QT Int : 420 ms P-R-T Axes : * -65 31 degrees QTcB Int : 456 ms Sinus rhythm with 1st degree A-V block Right bundle branch block Left anterior fascicular block Bifascicular block Abnormal ECG When compared with ECG of 02-Apr-2025 01:15, (unconfirmed) Left anterior fascicular block is now Present T wave inversion no longer evident in Inferior leads T wave inversion no longer evident in Anterolateral leads Confirmed by Harinder Gonzalez ([id number] on 04/02/2025 5:44:22 PM Referred By: REFERRED SELF Confirmed By: Harinder Gonzalez
[2025-04-02] MEDS: OLANZAPINE 2.5 MG TAB PO SCH (20:47)
[2025-04-02] MEDS: MELATONIN 3 MG TAB PO SCH (20:47)
[2025-04-03] MEDS: OLANZAPINE 2.5 MG TAB PO PRN (02:12)
[2025-04-03] MEDS: ACETAMINOPHEN 325 MG TAB PO PRN (02:12)
[2025-04-03 07:21] LABS: Hematocrit (blood only) 44.6 % (42.0-52.0); Hemoglobin 15.4 g/dl (14.0-18.0); Mean Corpuscular Hemoglobin 32.4 pg (25.0-34.0); Mean Corpuscular Volume 93.9 fL (80.0-100.0); Platelet Count 149 K/uL (130-400); RDW Standard Deviation 44.9 fL (36.4-46.3); Red Blood Count 4.75 M/uL (4.70-6.10); White Blood Count 7.49 K/ul (4.8-10.8)
[2025-04-03 07:34] LABS: Hemoglobin A1C 7.6 % (4.5-5.6)
[2025-04-03 07:43] LABS: Anion Gap 7.0 (3-11); Blood Urea Nitrogen 27.0 mg/dl (6-23); Calcium 9.0 mg/dl (8.6-10.3); Carbon Dioxide 27.0 mmol/L (21-32); Chloride 103.0 mmol/L (98-107); Creatinine Clr Calc Pharmacy 34.1 ml/min; Glucose 149.0 mg/dl (70-99(Fasting)); Magnesium 2.1 mg/dl (1.7-2.4); Potassium 4.2 mmol/L (3.5-5.1); Sodium 137.0 mmol/L (136-145)
[2025-04-03] MEDS: SODIUM CHLORIDE 0.9% 1,000 ML IV SCH (08:22)
[2025-04-03] MEDS ORDERED: LOSARTAN POTASSIUM 25 MG TAB PO SCH (09:00)
[2025-04-03] MEDS ORDERED: LOSARTAN POTASSIUM 50 MG TAB PO SCH (09:00)
--- NOTE | 2025-04-03 15:31 | Neurology Consultation ---
Date of Consultation April 03, 2025 Assessment & Plan (1) Acute metabolic encephalopathy: Suspect underlying dementia, mild to moderate with acute decompensation due to toxic metabolic causes. Cannot entirely rule out an acute ischemic stroke. Plan Recommend an MRI of the brain with and without contrast. Check B1 B12 folate thiamine. TSH. Continue to use olanzapine as needed. Continue to treat underlying metabolic derangements and infections. Further recommendations to follow Telehealth Consultation Telehealth Information Telehealth Information: I performed this visit using a real-time telehealth connection between my location and the patients location ([facility]). After connecting through interactive tele-video, patient was identified by name and date of and/or wristband check.Patient (or authorized healthcare pharmaceutical sales representative) was informed that this was a telemedicine visit and it was being conducted confidentially over secure lines. My office door was closed and no one else was present in the room with me.Patient (or authorized healthcare pharmaceutical sales representative) provided consent to proceed with the visit, expressed an un derstanding of privacy and security of the telemedicine visit, and gave permission to have a hospital pharmaceutical sales representative in the room in order to assist with the visit and to conduct portions of the visit, as needed. I informed the patient (or authorized healthcare pharmaceutical sales representative) that I reviewed their record and presented the opportunity for them to ask any questions regarding the visit today. The patient agreed to participate. History of Present Illness Reason for Consultation: Altered mental status before presentation Requesting Physician: Ayah Sequeira MD Attending Physician: Ayah Sequeira MD History of Present Illness Javier Francis is an 85-year-old male patient with PMH of type II DM, HLP, HTN, mood disorder, allergic rhinitis history of alcohol use who has presented to the hospital with cognitive changes. 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 Had stopped driving about 2 years ago because of difficulty with coordination. He does not help with meal prep, takes care of his personal hygiene, mostly sits at home and watches TV. Over the past several days she has noticed that he was more confused unable to answer appropriately, he gets agitated at times. At night he has not been able to sleep. He usually goes to bed at around 11 and complains that he could not sleep well, takes naps during the day.. Here in the hospital the patient appears to be called however he is incoherent and answering questions. He denied any focal neurological deficits, was not noticed to have any unilateral weakness. Did not report headaches or any other complaint. Walking with a walker. He is currently being treated for sinusitis. Allergies Allergy/AdvReac Type Severity Reaction Status Date / Time Penicillins Allergy Mild COLD Verified 04/01/25 22:56 BLISTERS latex AdvReac Intermediate SEE COMMENT Verified 04/01/25 23:34 Home Medications Medication Instructions Recorded Confirmed Type atenolol 25 mg tablet 12.5 mg PO DAILY 04/01/25 04/01/25 History atorvastatin 40 mg tablet 40 mg PO DAILY 04/01/25 04/01/25 History cholecalciferol (vitamin D3) 25 25 mcg PO DAILY 04/01/25 04/01/25 History mcg (1,000 unit) capsule (Vitamin D3) dapagliflozin propanediol 10 mg 10 mg PO DAILY 04/01/25 04/01/25 History tablet (Farxiga) dulaglutide 4.5 mg/0.5 mL 4.5 mg subcut WK 04/01/25 04/01/25 History subcutaneous pen injector (Trulicity) escitalopram oxalate 10 mg tablet 10 mg PO DAILY 04/01/25 04/01/25 History famotidine 20 mg tablet 20 mg PO DAILY 04/01/25 04/01/25 History ipratropium bromide 21 mcg (0.03 2 spray intranasal TID PRN Runny 04/01/25 04/01/25 History %) nasal spray Nose metformin 500 mg tablet,extended 500 mg PO BID 04/01/25 04/01/25 History release 24 hr thiamine HCl (vitamin B1) 100 mg 100 mg PO DAILY 04/01/25 04/01/25 History tablet (Vitamin B-1) trazodone 50 mg tablet 150 mg PO HS 04/01/25 04/01/25 History Patient History Social History Smoking Status: Unknown if ever smoked Tobacco Type: Smokeless Tobacco (Dip or Chew) Second Hand Exposure: No; Do You Dip or Chew Tobacco: No; Tobacco Cessation Education Requested by Patient: No Hx Alcohol Use: No Hx Substance Use: No Preferred Language: Malaysian Communication Ability: Impaired Maintenance Groundskeeper Required: No Beliefs That Will Affect Care: None Current Living Situation: Spouse Other Information That Helps Us Care for You: No Feels Safe at Home: Yes Safety Concerns: Feels Safe At This Time Assistive Devices: Cane and Walker Review of Systems The denies any recent illnesses other than some congestion and cough Physical Exam General Constitutional: Appearance normally developed with abdominal obesity Head and face: normocephalic and atraumatic Eyes: no ptosis, no anisocoria, and no dysconjugate gaze Respiratory: normal effort Cardiovascular: regular rhythm and regular rate Abdomen: non distended Skin: no rashes, lesions, or ulcers noted Psychiatric: Poor judgement and insight, normal mood, and normal affect NEUROLOGIC EXAMINATION: Mental Status:alert, sitting in bed, calm, answers questions inappropriately, seems to be confused, he is oriented to place and person not to time Cranial Nerves: CN 2 - no visual defect on confrontation and pupils round, equal, reactive to light CN 3, 4, 6 - extra-ocular movements intact and no nystagmus CN 5 - facial sensation intact CN 7 - no facial asymmetry CN 8 - intact hearing CN 9, 10 - palate symmetric, normal gag CN 11 - good shoulder shrug CN 12 - tongue midline MOTOR: Strength was at least antigravity throughout, Pronator drift was absent and There were no abnormal movements SENSATION: intact and symmetric to pinprick, light touch, vibration and joint position GAIT: Walks with a walker and a cane COORDINATION: No gross ataxia REFLEXES: cannot assess over telemedicine Results & Data Vital Signs (Past 12 Hours) Vital Signs Temp Pulse Pulse Resp BP Pulse Ox O2 Del Method 04/03/25 14:47 62 04/03/25 13:20 62 04/03/25 12:00 36.5 C 56 L 20 120/73 96 Room Air 04/03/25 10:56 36.6 C 56 L 19 103/54 L 97 Room Air 04/03/25 09:23 Room Air 04/03/25 07:07 36.8 C 62 19 127/74 96 Room Air Laboratory Results Laboratory Results - last 24 hr 04/02/25 04/02/25 04/03/25 16:18 20:13 07:01 WBC 7.49 RBC 4.75 Hgb 15.4 Hct 44.6 MCV 93.9 MCH 32.4 MCHC 34.5 RDW Std Deviation 44.9 RDW Coeff of Rudy 13.0 Plt Count 149 MPV 9.8 Sodium 137 Potassium 4.2 Chloride 103 Carbon Dioxide 27 Anion Gap 7 BUN 27 H Creatinine 1.72 H D Est Cr Clr Drug Dosing 34.1 eGFR 38.71 BUN/Creatinine Ratio 15.7 Glucose 149 H POC Glucose 156 H 158 H Estimat Average Glucose 171 Hemoglobin A1c 7.6 H Calcium 9.0 Phosphorus 4.5 Magnesium 2.1 04/03/25 04/03/25 07:19 11:27 WBC RBC Hgb Hct MCV MCH MCHC RDW Std Deviation RDW Coeff of Rudy Plt Count MPV Sodium Potassium Chloride Carbon Dioxide Anion Gap BUN Creatinine Est Cr Clr Drug Dosing eGFR BUN/Creatinine Ratio Glucose POC Glucose 173 H 242 H Estimat Average Glucose Hemoglobin A1c Calcium Phosphorus Magnesium Diagnostic Findings Echocardiogram LVEF 55-60%, aortic valve sclerosis, mild mitral regurgitation, grade 1 diastolic dysfunction, Normal left atrial size. CT scan of the head shows chronic atrophy and white matter changes no acute process Medications Administered Home Medications Medication Instructions Recorded Confirmed Last Taken atenolol 25 mg tablet 12.5 mg PO DAILY 04/01/25 04/01/25 04/01/25 atorvastatin 40 mg tablet 40 mg PO DAILY 04/01/25 04/01/25 04/01/25 cholecalciferol (vitamin D3) 25 25 mcg PO DAILY 04/01/25 04/01/25 04/01/25 mcg (1,000 unit) capsule (Vitamin D3) dapagliflozin propanediol 10 mg 10 mg PO DAILY 04/01/25 04/01/25 Unknown tablet (Farxiga) dulaglutide 4.5 mg/0.5 mL 4.5 mg subcut WK 04/01/25 04/01/25 03/29/25 subcutaneous [facility] escitalopram oxalate 10 mg tablet 10 mg PO DAILY 04/01/25 04/01/25 04/01/25 famotidine 20 mg tablet 20 mg PO DAILY 04/01/25 04/01/25 04/01/25 ipratropium bromide 21 mcg (0.03 2 spray intranasal TID PRN Runny 04/01/25 04/01/25 Unknown %) nasal spray Nose metformin 500 mg tablet,extended 500 mg PO BID 04/01/25 04/01/25 04/01/25 08:00 release 24 hr thiamine HCl (vitamin B1) 100 mg 100 mg PO DAILY 04/01/25 04/01/25 04/01/25 tablet (Vitamin B-1) trazodone 50 mg tablet 150 mg PO HS 04/01/25 04/01/25 03/31/25 Active Medications Generic Name Dose Route Start Last Admin Trade Name Jazmyne PRN Reason Stop Dose Admin Acetaminophen 650 mg 04/02/25 02:49 04/03/25 02:12 Acetaminophen 325 Mg Tab PO 05/02/25 02:48 650 mg QID PRN Administration pain/fever Atenolol 12.5 mg 04/02/25 09:00 04/03/25 08:16 Atenolol 25 Mg Tablet PO 05/02/25 08:59 12.5 mg DAILY MAURICE Administration Atorvastatin Calcium 40 mg 04/02/25 09:00 04/03/25 08:16 Atorvastatin 40 Mg Tab PO 05/02/25 08:59 40 mg DAILY MAURICE Administration Enoxaparin Sodium 40 mg 04/02/25 09:00 04/03/25 08:16 Enoxaparin Inj 40 Mg/0.4 Ml Syr SQ 05/02/25 08:59 40 mg QAM MAURICE Administration Escitalopram Oxalate 10 mg 04/02/25 09:00 04/03/25 08:16 Escitalopram Oxalate 10 Mg Tab PO 05/02/25 08:59 10 mg DAILY MAURICE Administration Famotidine 20 mg 04/02/25 09:00 04/03/25 08:16 Famotidine 20 Mg Tab PO 05/02/25 08:59 20 mg DAILY MAURICE Administration Ceftriaxone Sodium 2,000 mg in 50 mls @ 100 mls/hr 04/02/25 14:15 04/03/25 14:00 Rocephin IV 04/12/25 14:14 Infused Q24H MAURICE Infusion Sodium Chloride 1,000 mls @ 65 mls/hr 04/03/25 08:00 04/03/25 08:22 Nss IV 04/04/25 14:46 65 mls/hr .[id number] MAURICE Administration Insulin Aspart 0 units 04/02/25 04:01 04/03/25 12:00 Insulin Aspart Per Unit Charge SC 05/02/25 04:00 7 units ACHS MAURICE Administration Insulin Glargine 5 units 04/02/25 09:00 04/03/25 08:09 Lantus Per Unit Charge SQ 05/02/25 08:59 5 units DAILY MAURICE Administration Melatonin 6 mg 04/02/25 21:00 04/02/25 20:47 Melatonin 3 Mg Tab PO 05/02/25 20:59 6 mg HS MAURICE Administration Olanzapine 2.5 mg 04/02/25 21:00 04/02/25 20:47 Olanzapine 2.5 Mg Tab PO 05/02/25 20:59 2.5 mg HS MAURICE Administration Olanzapine 2.5 mg 04/02/25 14:19 04/03/25 02:12 Olanzapine 2.5 Mg Tab PO 05/02/25 20:59 2.5 mg BID PRN Administration agitation Pantoprazole Sodium 40 mg 04/02/25 21:00 04/03/25 08:16 Pantoprazole 40 Mg Tab PO 05/02/25 20:59 40 mg BID MAURICE Administration Thiamine HCl 100 mg 04/02/25 09:00 04/03/25 08:16 Thiamine Hcl 100 Mg Tab PO 05/02/25 08:59 100 mg DAILY MAURICE Administration ECG Additional Comments: EKG was sinus rhythm and first-degree AV block
--- NOTE | 2025-04-03 16:33 | Hospitalist Progress Note ---
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 Patient complaining of SOB without chest pain. Pt noted to have worsening congestion/phlegm symptoms over the last few months as per family a/w sensation of choking disrupting sleep. Minimal improvement with outpatient courses of Flonase, ipratropium nasal spray, Claritin for possible allergic rhinitis as per . Patient not sleeping well at night as per . No witnessed apneic episodes at home although patient and have separate bedrooms. Shortness of breath: ruled out PE, ruled out heart failure. Concern for sleep apnea: pt noted to have sensation of choking disrupting sleep - sleep apnea vs worsening GERD Likely worsening GERD: Pt w/ worsening phlegm symptoms for last few month a/w sensation of choking disrupting sleep Likely Sinusitis x Lt maxillary: pt w/ cough/congestion symptoms at presentation. Has been on RA since presentation. Trop x2 neg, BNP 26, Pt denies chest pain. RPP neg. ECHO with EF of 55 to 60%, grade 1 diastolic dysfunction, left ventricular wall motion normal. CXR w/ no acute finding, CTA chest w/ no PE, no pneumonia. CT sinus: Minimal mucosal thickening is noted involving left maxillary sinus. - suggest sinusitis. Nocturnal pulse oximetry 04/03, normal. TSH nl No focal weakness, pt denies numbness and tingling. Encourage incentive spirometer, rocephin for sinusitis (plan for 7d Rx), continue to monitor. Recommend OP sleep study. Pt w/ minimal improvement in his phlegm symptoms w/ antiallergic Rx as OP, c/w PPI bid for concern of worsening GERD. 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 Pt reports improvement in phlegm, will continue to follow. Pt will likely benefit from OP GI eval [place] aspiration precaution. 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 Presenting CT Head w/ no acute finding. BP elevated at presentation. c/w home atenolol. Losartan added this admission, hold for now as maren Pt noted to be slightly agitated, trying to get out of bed. c/w 1to1 sitter. C/w harjeet olanzapine and melatonin w/ prn option for olanzapine. Neuro evaled, will order b1, b12, folate, b6, mri wo/w con. Other chronic medical conditions: Continue with/resume home meds as and when able. hyperlipidemia, on statin Rx DM2 on oral medications, suboptimal control as of recent hemoglobin A1c of 8.4 last December 2024, will get A1c in am past alcohol abuse PT OT eval DVT prophylaxis. Lovenox subcu Full code Patient Ms. Kamila Hodges, contact #[phone]. Updated at bedside. Text document was generated using [employer] voice recognition software. It may contain grammatical or spelling errors. Kindly contact undersigned for clarification of any documentation item in question. Admission and Anticipated Discharge Date Admission Date: April 03, 2025 Subjective Patient was seen and examined at bedside. Patient was lying in bed, on room air, NAD. Patient appears somewhat more conversive today, still is confused. Overnight he had less agitation per RN. Patient has been eating okay and moving bowels okay. Patient's was updated on plan of care at bedside Physical Exam Physical Exam: GENERAL: Confused, pleasant, no respiratory distress SKIN: Normal color, warm HEENT: Alopecia, pink palpebral conjunctivae, no ptosis, moist buccal mucosa NECK : Supple, no tenderness CHEST : Decreased breath sounds, no wheezes, no tenderness HEART : RRR, no obvious murmurs ABDOMEN: Some distention, nontender EXTREMITIES : No LE swelling/tenderness, palpable pulses, no other conspicuous deformities noted NEUROLOGIC : confused, awake, oriented x 2,no facial asymmetry, no other gross focality Results & Data Results & Data Vital Signs (Past 12 Hours) Vital Signs Temp Pulse Pulse Resp BP Pulse Ox O2 Del Method 04/03/25 16:15 36.7 C 63 20 113/61 96 Room Air 04/03/25 14:47 62 04/03/25 13:20 62 04/03/25 12:00 36.5 C 56 L 20 120/73 96 Room Air 04/03/25 10:56 36.6 C 56 L 19 103/54 L 97 Room Air 04/03/25 09:23 Room Air 04/03/25 07:07 36.8 C 62 19 127/74 96 Room Air
[2025-04-03] MEDS: GADOBUTROL 65ML VIAL IV ONE (17:58)
--- NOTE | 2025-04-03 18:14 | Magnetic Resonance Report ---
MRI of the brain performed with and without IV contrast History: Confusion Comparison: None Technique: Multiplanar T1 weighted, axial T2/FLAIR, and susceptibility images were obtained without intravenous contrast. Following intravenous gadolinium based contrast administration, axial T2 weighted, diffusion, and T1-weighted images were obtained. Findings: No evidence for intracranial mass lesion, mass-effect, midline shift, or abnormal extra-axial fluid collection. Postcontrast images demonstrate no abnormal intracranial enhancement. The orbits are grossly unremarkable. Moderate to marked cerebral atrophy. Mild chronic microvascular ischemic changes in the white matter. The mesial temporal lobes appear grossly symmetric. No abnormally reduced diffusion or evidence for acute infarct. Normal intravascular flow voids. Bilateral pseudophakia. Impression: No acute intracranial pathology or abnormal enhancement. Age-related cerebral atrophy. Electronically signed by Harinder Elise 04-03-2025 6:13 PM
[2025-04-04 07:27] LABS: Hematocrit (blood only) 43.3 % (42.0-52.0); Hemoglobin 14.5 g/dl (14.0-18.0); Mean Corpuscular Hemoglobin 31.8 pg (25.0-34.0); Mean Corpuscular Volume 95.0 fL (80.0-100.0); Platelet Count 132 K/uL (130-400); RDW Standard Deviation 46.5 fL (36.4-46.3); Red Blood Count 4.56 M/uL (4.70-6.10); White Blood Count 5.85 K/ul (4.8-10.8)
[2025-04-04 07:58] LABS: Anion Gap 7.0 (3-11); Blood Urea Nitrogen 36.0 mg/dl (6-23); Calcium 8.5 mg/dl (8.6-10.3); Carbon Dioxide 25.0 mmol/L (21-32); Chloride 106.0 mmol/L (98-107); Creatinine Clr Calc Pharmacy 42.6 ml/min; Glucose 144.0 mg/dl (70-99(Fasting)); Potassium 4.2 mmol/L (3.5-5.1); Sodium 138.0 mmol/L (136-145)
[2025-04-04 08:10] LABS: Folate (Folic Acid),Ser orPlas 16.24 ng/ml (>5.38); Vitamin B12 200.0 pg/ml (180-914)
[2025-04-04] MEDS: NICOTINE 21 MG/24 HR TDSY TD SCH (08:35)
[2025-04-04] MEDS: REMOVE NICODERM PATCH SCH (08:36)
--- NOTE | 2025-04-04 10:09 | Electrocardiogram Report ---
Test Reason : Blood Pressure : */* mmHG Vent. Rate : 64 BPM Atrial Rate : 64 BPM P-R Int : 276 ms QRS Dur : 108 ms QT Int : 414 ms P-R-T Axes : 48 -58 42 degrees QTcB Int : 427 ms Sinus rhythm with 1st degree A-V block Left axis deviation RSR' or QR pattern in V1 suggests right ventricular conduction delay Minimal voltage criteria for LVH, may be normal variant ( Raymond product ) Inferior infarct , age undetermined Anterolateral infarct , age undetermined Abnormal ECG When compared with ECG of 02-Apr-2025 12:17, RSR' pattern in V1 has replaced Right bundle branch block Anterior infarct is now Present Anterolateral infarct is now Present Compared to prior ECG 04/02/25 from 01:15, the marked anterolateral ST-T wave changes have now resolved . Confirmed by Clara Ramirez (Payam) on 04/04/2025 10:09:08 AM Referred By: REFERRED SELF Confirmed By: Clara Ramirez
--- NOTE | 2025-04-04 12:51 | Electrocardiogram Report ---
Test Reason : Blood Pressure : */* mmHG Vent. Rate : 69 BPM Atrial Rate : 69 BPM P-R Int : 254 ms QRS Dur : 138 ms QT Int : 418 ms P-R-T Axes : 18 -12 -13 degrees QTcB Int : 447 ms Sinus rhythm with 1st degree A-V block Right bundle branch block T wave abnormality, consider lateral ischemia Marked anterolateral ST-T abnormalities consider ischemia vs subendocardial SD Abnormal ECG When compared with ECG of 01-Apr-2025 22:59, T wave inversion now evident in Anterolateral leads Clinical correlation advised Confirmed by Clara Ramirez ([id number]) on 04/04/2025 12:51:37 PM Referred By: REFERRED SELF Confirmed By: Clara Ramirez
--- NOTE | 2025-04-04 14:54 | Hospitalist Progress Note ---
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 Pt noted to have worsening congestion/phlegm symptoms over the last few months as per family a/w sensation of choking disrupting sleep. Minimal improvement with outpatient courses of Flonase, ipratropium nasal spray, Claritin for possible allergic rhinitis as per . Patient not sleeping well at night as per . No witnessed apneic episodes at home although patient and have separate bedrooms. Shortness of breath: ruled out PE, ruled out heart failure. Concern for sleep apnea: pt noted to have sensation of choking disrupting sleep - sleep apnea vs worsening GERD Likely worsening GERD: Pt w/ worsening phlegm symptoms for last few month a/w sensation of choking disrupting sleep Likely Sinusitis x Lt maxillary: pt w/ cough/congestion symptoms at presentation. Has been on RA since presentation. Trop x2 neg, BNP 26, Pt denies chest pain. RPP neg. ECHO with EF of 55 to 60%, grade 1 diastolic dysfunction, left ventricular wall motion normal. CXR w/ no acute finding, CTA chest w/ no PE, no pneumonia. CT sinus: Minimal mucosal thickening is noted involving left maxillary sinus. - suggest sinusitis. Nocturnal pulse oximetry 04/03, normal. TSH nl No focal weakness, pt denies numbness and tingling. Encourage incentive spirometer, rocephin for sinusitis (plan for 7d Rx), continue to monitor. Recommend OP sleep study. Pt w/ minimal improvement in his phlegm symptoms w/ antiallergic Rx as OP, c/w PPI bid for concern of worsening GERD. Pt reports improvement in phlegm/cough, will continue to follow. Consider GI consult disha for ? GERD flare. R/o aspiration, [employer] ADVISOR eval. [place] aspiration precaution. 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 Presenting CT Head w/ no acute finding. BP elevated at presentation. c/w home atenolol. Losartan added this admission, hold for now as maren Pt's mentation seems to be improving gradually, will follow. More awake alert conversive. C/w harjeet olanzapine and melatonin w/ prn option for olanzapine. Neuro evaled, will order b1, b12, folate, b6, mri wo/w con. MRI brain w/ no acute finding. B12 low normal, supplement started. Other chronic medical conditions: Continue with/resume home meds as and when able. hyperlipidemia, on statin Rx DM2 on oral medications, suboptimal control as of recent hemoglobin A1c of 8.4 last December 2024, will get A1c in am past alcohol abuse PT OT eval DVT prophylaxis. Lovenox subcu Full code Patient Ms. Kamila Hodges, contact #[phone]. Updated at over the phone, request GI eval while inpatient. Text document was generated using [employer] voice recognition software. It may contain grammatical or spelling errors. Kindly contact undersigned for clarification of any documentation item in question. Admission and Anticipated Discharge Date Admission Date: April 03, 2025 Subjective Patient was seen and examined at bedside. Patient was lying in bed, on room air, NAD. Patient is awake, alert, conversive and cooperative, feels/looks better today Overnight he had few hours of sleep per RN, he had no agitation. Patient has been eating okay and moving bowels okay. Patient's was updated on plan of care over the phone and was wondering if GI can eval him for his GERD flare. Physical Exam Physical Exam: GENERAL: Awake , alert, Ox 2, pleasant, no respiratory distress SKIN: Normal color, warm HEENT: Alopecia, pink palpebral conjunctivae, no ptosis, moist buccal mucosa NECK : Supple, no tenderness CHEST : Decreased breath sounds, no wheezes, no tenderness HEART : RRR, no obvious murmurs ABDOMEN: Some distention, nontender EXTREMITIES : No LE swelling/tenderness, palpable pulses, no other conspicuous deformities noted NEUROLOGIC : confused, awake, oriented x 2,no facial asymmetry, no other gross focality Results & Data Results & Data Vital Signs (Past 12 Hours) Vital Signs Temp Pulse Pulse Resp BP Pulse Ox O2 Del Method 04/04/25 11:38 57 L 04/04/25 10:55 36.7 C 63 18 131/72 94 Room Air 04/04/25 09:57 Room Air 04/04/25 07:30 36.6 C 64 19 140/77 97 Room Air
--- NOTE | 2025-04-04 15:27 | Communication Note ---
Date of Service: April 04, 2025 MRI of the brain shows extensive atrophy and chronic white matter changes no acute ischemic infarcts. Vitamin B12 is 200. Folate is 16, B1 and B6 are pending. Follow-up and replete accordingly. Consider Aricept 5 mg at bedtime. Continue to use olanzapine 2.5 mg p.o. nightly as needed
[2025-04-04] MEDS: DONEPEZIL HCL 5 MG TAB PO SCH (20:14)
[2025-04-05 06:22] LABS: Hematocrit (blood only) 39.7 % (42.0-52.0); Hemoglobin 13.7 g/dl (14.0-18.0); Mean Corpuscular Hemoglobin 32.7 pg (25.0-34.0); Mean Corpuscular Volume 94.7 fL (80.0-100.0); Platelet Count 131 K/uL (130-400); RDW Standard Deviation 45.1 fL (36.4-46.3); Red Blood Count 4.19 M/uL (4.70-6.10); White Blood Count 5.24 K/ul (4.8-10.8)
[2025-04-05 06:39] LABS: Anion Gap 5.0 (3-11); Blood Urea Nitrogen 28.0 mg/dl (6-23); Calcium 8.2 mg/dl (8.6-10.3); Carbon Dioxide 23.0 mmol/L (21-32); Chloride 111.0 mmol/L (98-107); Creatinine Clr Calc Pharmacy 47.4 ml/min; Glucose 156.0 mg/dl (70-99(Fasting)); Potassium 4.2 mmol/L (3.5-5.1); Sodium 139.0 mmol/L (136-145)
[2025-04-05 07:21] VITALS: RESP 18; O2SAT 97
[2025-04-05] MEDS: CYANOCOBALAMIN (B-12) 100 MCG TABLET PO SCH (08:19)
[2025-04-05] MEDS: ADVANCED PROBIOTIC 625 MG CAPSULE PO SCH (08:21)
[2025-04-05] MEDS: LOSARTAN POTASSIUM 25 MG TAB PO SCH (09:45)
--- NOTE | 2025-04-05 09:54 | Gastrointestinal Consultation ---
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 (1) ? GERD/Dysphagia with h/o confusion. - Hgb relatively stable at 13.7 g/dl. Work up for confusion MRI brain, Head CT, Chest CTA and CXR non-diagnostic. - He reports he can swallow meat and breads without issue so significant stricture seems less likely. - Given recent confusion may have some dysmotility. - Would be suitable for further evaluation of swallowing with Barium swallow and follow up with outpatient GI which they'd like to have done through [facility]. - Would recommend aspiration precautions and call for any concerns. Supervising Physician Co-Signing Physician Notes Difficult historian. at the bedside feels that he has been confused not himself. Question of difficulty breathing and potential swallowing. However no reported history of dysphagia to steak chicken pork or problems predating present. Workup does not suggest CVA. I think the best test at this point would be a barium swallow barium esophagram with tablet. Differential could include neurological dysphagia aspiration Zenker's diverticulum achalasia or large hiatal hernia. Apparently patient for discharge today. Can have done as an outpatient. If remains can be done the following a.m. Patient follows with [facility] he can follow-up with them for review of this x-ray once completed. Neck revealed no adenopathy or mass effect. History of Present Illness Reason for Consultation: ? GERD - Increased phlegm and cough. Requesting Physician: Dr. 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 History was assisted by . Per patient he has no concerns. He reports that he has had increased sinus congestion and would spit some fluid up sometime when lying down at night. Over the last couple of weeks he's started to have more confusion. He was admitted to the hospital. Head CT, MRI brain, Chest XR and Chest CTA was non- diagnostic. He's preparing for discharge today and they asked that we consult with patient for possibility of difficulties swallowing or GERD He denies any dysphagia fevers, chills, GERD, abdominal pain, N/V/D, melena or hematochezia. Social history - 1-2 beers a week. No tobacco or drug use. Family history - No hx of IBD, celiacs or colorectal CA. Last Colonoscopy [address] Engle - Negative colonoscopy. Patient reports that he had a EGD prior to this but we don't have these records. Allergies Allergy/AdvReac Type Severity Reaction Status Date / Time Penicillins Allergy Mild COLD Verified 04/01/25 22:56 BLISTERS latex AdvReac Intermediate SEE COMMENT Verified 04/01/25 23:34 Home Medications Medication Instructions Recorded Confirmed Type atenolol 25 mg tablet 12.5 mg PO DAILY 04/01/25 04/01/25 History atorvastatin 40 mg tablet 40 mg PO DAILY 04/01/25 04/01/25 History cholecalciferol (vitamin D3) 25 25 mcg PO DAILY 04/01/25 04/01/25 History mcg (1,000 unit) capsule (Vitamin D3) dapagliflozin propanediol 10 mg 10 mg PO DAILY 04/01/25 04/01/25 History tablet (Farxiga) dulaglutide 4.5 mg/0.5 mL 4.5 mg subcut WK 04/01/25 04/01/25 History subcutaneous pen injector (Trulicity) escitalopram oxalate 10 mg tablet 10 mg PO DAILY 04/01/25 04/01/25 History famotidine 20 mg tablet 20 mg PO DAILY 04/01/25 04/01/25 History ipratropium bromide 21 mcg (0.03 2 spray intranasal TID PRN Runny 04/01/25 04/01/25 History %) nasal spray Nose metformin 500 mg tablet,extended 500 mg PO BID 04/01/25 04/01/25 History release 24 hr thiamine HCl (vitamin B1) 100 mg 100 mg PO DAILY 04/01/25 04/01/25 History tablet (Vitamin B-1) L.acidop,casei,lactis,rham-B.lact,denise 1 cap PO DAILY 7 days #7 caps 04/05/25 Rx 625 mg (10 billion cell) capsule (Advanced Probiotic) cefdinir 300 mg capsule 300 mg PO BID 5 days #10 caps 04/05/25 Rx cyanocobalamin (vitamin B-12) 100 100 mcg PO QAM #30 tabs 04/05/25 Rx mcg tablet (Vitamin B-12) donepezil 5 mg tablet 5 mg PO HS #30 tabs 04/05/25 Rx losartan 25 mg tablet 25 mg PO QAM #30 tabs 04/05/25 Rx nicotine 21 mg/24 hr daily 1 patch transdermal QAM #28 ea 04/05/25 Rx transdermal patch (Nicoderm CQ) olanzapine 2.5 mg tablet 2.5 mg PO HS PRN agitation #30 tabs 04/05/25 Rx pantoprazole 40 mg tablet,delayed 40 mg PO BID #60 tabs 04/05/25 Rx release Patient History Medical History (Updated 04/05/25 @ 15:40 by Ian Markham PA-C) GERD (gastroesophageal reflux disease) Social History Smoking Status: Unknown if ever smoked Tobacco Type: Smokeless Tobacco (Dip or Chew) Second Hand Exposure: No; Do You Dip or Chew Tobacco: No; Hx Alcohol Use: No Hx Substance Use: No Preferred Language: Liberian Communication Ability: Impaired 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 Alert. Answering questions appropriately. Respiratory: Breathing is even, non-labored. Lungs pittman are clear to ausc ultation anteriorly. Cardiovascular: Regular Rate and Rhythm, no murmurs, rubs or gallops appreciated. Gastrointestinal (Abdomen): Normoactive bowel sounds x4, soft, non-distended, non-tender. Musculoskeletal: Lying in bed comfortably. No peripheral edema. Results & Data Vital Signs (Past 12 Hours) Vital Signs Temp Pulse Resp BP Pulse Ox O2 Del Method 04/05/25 09:47 114/64 04/05/25 07:20 97.5 F L 68 18 160/92 H 97 Room Air 04/05/25 03:10 98.6 F 65 14 142/77 H 95 Room Air 04/04/25 22:44 98.6 F 63 16 132/67 97 Room Air PG Care Time/CCT Total # of Minutes Spent Total Time Spent with Patient: Total time spent is greater than 50% in coordination of care (as documented) at patient's floor/unit and/or counseling patient: Coding Level of Care Code 99363 IN/OBS CONSULT LVL 3,45M Diagnoses GERD (gastroesophageal reflux disease) K21.9
[2025-04-05 11:13] VITALS: BP 116/64; TEMP 97.9
--- NOTE | 2025-04-05 15:10 | Discharge Summary ---
Date of Service April 05, 2025 Admission HPI Per Admitting Provider History obtained from patient, family, and records. Limited history from patient secondary to disoriented state. Medical history significant for hypertension, hyperlipidemia, DM2 on oral medications, GERD, mood disorder, allergic rhinitis, past alcohol use. Patient has had worsening congestion/phlegm symptoms over the last few months as per family. Sensation of choking disrupting sleep. Minimal improvement with outpatient courses of Flonase, ipratropium nasal spray, Claritin for possible allergic rhinitis as per . Last few days, patient noted to be more confused. Patient complaining of SOB without chest pain. Congestion symptoms worse. Denies fluid retention. Denies headache symptoms. Denies abdominal pain. No new medications. Patient not sleeping well at night as per . No witnessed apneic episodes at home although patient and have separate bedrooms. SBP 170s at home tonight which is unusual as per . Patient brought to ER for evaluation. Highest SBP of 190s documented at the ER. 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 Admission Exam Per Admitting Provider GENERAL: Disoriented, pleasant, no respiratory distress SKIN: Normal color, warm HEENT: Alopecia, pink palpebral conjunctivae, no ptosis, dry buccal mucosa NECK : Supple, no tenderness CHEST : Decreased breath sounds, no wheezes, no tenderness HEART : RRR, no obvious murmurs ABDOMEN: Some distention, nontender EXTREMITIES : No LE swelling/tenderness, palpable pulses, no other conspicuous deformities noted NEUROLOGIC : Disoriented, no facial asymmetry, no other gross focality Principal Diagnosis Shortness of breath Concern for sleep apnea Likely worsening GERD Likely Sinusitis x Lt maxillary Altered mental status/likely Metabolic encephalopathy Hypertensive urgency Discharge Exam GENERAL: Awake , alert, Ox 2, pleasant, no respiratory distress SKIN: Normal color, warm HEENT: Alopecia, pink palpebral conjunctivae, no ptosis, moist buccal mucosa NECK : Supple, no tenderness CHEST : Decreased breath sounds, no wheezes, no tenderness HEART : RRR, no obvious murmurs ABDOMEN: Some distention, nontender EXTREMITIES : No LE swelling/tenderness, palpable pulses, no other conspicuous deformities noted NEUROLOGIC : confused, awake, oriented x 2,no facial asymmetry, no other gross focality Discharge Data Allergies Allergy/AdvReac Type Severity Reaction Status Date / Time Penicillins Allergy Mild COLD Verified 04/01/25 22:56 BLISTERS latex AdvReac Intermediate SEE COMMENT Verified 04/01/25 23:34 Consultations 04/02/25 02:02 ED Decision to Admit Stat 04/03/25 12:23 Consult Neurology Routine 04/05/25 08:49 Consult Gastroenterology Routine Ordered Studies 04/01/25 23:31 CT head/brain wo con Stat 04/02/25 02:46 CT angio chest PE protocol Stat CT sinus w con Stat 04/03/25 16:17 MRI Brain [MR brain wo/w con] Routine Hospital Course (1) Confusion: Plan 85 yo M w/ PMH of hypertension, hyperlipidemia, DM2 on oral medications, GERD, mood disorder, allergic rhinitis, past alcohol use was 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 Patient complaining of SOB without chest pain. Pt noted to have worsening congestion/phlegm symptoms over the last few months as per family a/w sensation of choking disrupting sleep. Minimal improvement with outpatient courses of Flonase, ipratropium nasal spray, Claritin for possible allergic rhinitis as per . Patient not sleeping well at night as per . No witnessed apneic episodes at home although patient and have separate bedrooms. Shortness of breath: ruled out PE, ruled out heart failure. Concern for sleep apnea: pt noted to have sensation of choking disrupting sleep - sleep apnea vs worsening GERD Likely worsening GERD: Pt w/ worsening phlegm symptoms for last few month a/w se nsation of choking disrupting sleep Likely Sinusitis x Lt maxillary: pt w/ cough/congestion symptoms at presentation. Has been on RA since presentation. Trop x2 neg, BNP 26, Pt denies chest pain. RPP neg. ECHO with EF of 55 to 60%, grade 1 diastolic dysfunction, left ventricular wall motion normal. CXR w/ no acute finding, CTA chest w/ no PE, no pneumonia. CT sinus: Minimal mucosal thickening is noted involving left maxillary sinus. - suggest sinusitis. Nocturnal pulse oximetry 8/9, normal. TSH nl No focal weakness, pt denies numbness and tingling. Encourage incentive spirometer, rocephin for sinusitis (plan for 7d Rx), to po atb on dc. Recommend OP sleep study. Pt and his aware. Pt w/ minimal improvement in his phlegm symptoms w/ antiallergic Rx as OP, c/w PPI bid for concern of worsening GERD. Pt reports improvement in phlegm/cough, will continue to follow. Consider GI consult for ? GERD flare. Pt to f/u w/ GI as OP. c/w protonic bid on dc. 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 Presenting CT Head w/ no acute finding. BP elevated at presentation. c/w home atenolol. Losartan added this admission, continue. Measure BP twice a day, maintain a log and take to your PCP office for ongoing eval/Mx. Per pt's , pt's mentation is approaching his baseline but not there yet, she would like to take him home. C/w prn olanzapine hs, hs aricept. Neuro evaled, f/u w/ neuro on dc. MRI brain w/ no acute finding. B12 low normal, supplement started. continue. Other chronic medical conditions: Continue with/resume home meds as and when able. hyperlipidemia, on statin Rx DM2 on oral medications, suboptimal control as of recent hemoglobin A1c of 8.4 last December 2024, will get A1c in am past alcohol abuse PT OT eval DVT prophylaxis. Lovenox subcu Full code Patient Ms. Kamila Hodges, contact #[phone]. Updated at bedside. Patient is being discharged to home with home health with following instructions at the point of discharge: Follow-up with your primary care physician within a week time and likely you w ill need labs CBC/CMP/magnesium/phosphorus. For concern of sleep apnea, recommend you get sleep study done as an outpatient. For left maxillary sinusitis, you are being discharged on antibiotic, please complete the course. For concern of worsening GERD, you are being discharged on protonix twice a day. Recommend that you establish with GI physician in 2-4 weeks time upon discharge. For your high BP, losartan has been added this admission. Recommend you measure Blood Pressure twice a day, maintain a log to take to PCP for ongoing evaluation/management. For dementia concerns, neurology evaluated you and started on Aricept. Recommend you follow up with neurology in 2-4 weeks time upon discharge. For sleep, you can use OTC melatonin 5 mg tablet, take 2-3 hours prior to sleep, avoid television during this time prior to sleep. Take your medications as prescribed. Please make sure that you are able to get your medications today by calling your pharmacy before you leave the hospital so that your treatment continuity is not broken. Text document was generated using [employer] voice recognition software. It may contain grammatical or spelling errors. Kindly contact undersigned for clarification of any documentation item in question. Home Health Attestation I certify that this patient is under my care and that I, or a physicians assistant research scientist working with me, had a face to-face encounter that meets the home health [id number] encounter requirements with this patient. The encounter with the patient was in whole, or in part, for the following medical condition, which is the primary reason for home health care (list medical condition): I certify that, based on my findings, the following services are medically necessary home health services: My clinical findings support the need for the above services because: Further, I certify that my clinical findings support that this patient is homebound (i.e. absences from home require considerable and taxing effort and are for medical reasons or church services or infrequently or of short duration when for other reasons) because: Certification for Home Health Services: Based on the above findings, I certify that this patient is confined to the home and needs intermittent usp care, physical therapy and/or speech therapy or continues to need occupational therapy. The patient is under my care, and I have initiated the establishment of the plan of care. This patient will be followed by a physician who will periodically review the plan of care. Total Time Total Time Spent Total Time Spent (In Minutes): 40 Discharge Plan Discharge Items Patient Disposition: Home - Home Health Services Reason For Visit: SOB, AMS Discharge Diagnosis: Shortness of breath Concern for sleep apnea Likely worsening GERD Likely Sinusitis x Lt maxillary Altered mental status/likely Metabolic encephalopathy Hypertensive urgency Condition on Discharge: Fair Activity: As commented below Activity Comment: continue w/ physical therapy at home. Non-emergency contact: Primary Care Provider Call non-emergency contact if: you have any medication questions Follow-up/Referrals: Sasha Martin DO [Primary Care Provider] - Diet: Carb Consistent or DM2 and Heart Healthy Addtl Attending Provider Instructions: Follow-up with your primary care physician within a week time and likely you will need labs CBC/CMP/magnesium/phosphorus. For concern of sleep apnea, recommend you get sleep study done as an outpatient. For left maxillary sinusitis, you are being discharged on antibiotic, please complete the course. For concern of worsening GERD, you are being discharged on protonix twice a day. Recommend that you establish with GI physician in 2-4 weeks time upon discharge. For your high BP, losartan has been added this admission. Recommend you measure Blood Pressure twice a day, maintain a log to take to PCP for ongoing evaluation/management. For dementia concerns, neurology evaluated you and started on Aricept. Recommend you follow up with neurology in 2-4 weeks time upon discharge. For sleep, you can use OTC melatonin 5 mg tablet, take 2-3 hours prior to sleep, avoid television during this time prior to sleep. Take your medications as prescribed. Please make sure that you are able to get your medications today by calling your pharmacy before you leave the hospital so that your treatment continuity is not broken. Pending Studies at Discharge: No Stand-Alone Forms: My [facility] Indeed, Smoking Cessation Medications and DC Order Prescriptions: New donepezil 5 mg Tablet 5 mg PO HS Qty: 30 0RF olanzapine 2.5 mg Tablet 2.5 mg PO HS PRN (Reason: agitation) Qty: 30 0RF losartan 25 mg Tablet 25 mg PO QAM Qty: 30 0RF nicotine [Nicoderm CQ] 21 mg/24 hr Patch 24 Hour 1 patch transdermal QAM Qty: 28 0RF cyanocobalamin (vitamin B-12) [Vitamin B-12] 100 mcg Tablet 100 mcg PO QAM Qty: 30 0RF pantoprazole 40 mg Tablet,Delayed Release (Dr/Ec) 40 mg PO BID Qty: 60 0RF Advanced Probiotic 625 mg (10 billion cell) Capsule 1 cap PO DAILY 7 Days Qty: 7 0RF cefdinir 300 mg capsule 300 mg PO BID 5 Days Qty: 10 0RF Continued atorvastatin 40 mg tablet 40 mg PO DAILY atenolol 25 mg tablet 12.5 mg PO DAILY thiamine HCl (vitamin B1) [Vitamin B-1] 100 mg Tablet 100 mg PO DAILY famotidine 20 mg tablet 20 mg PO DAILY metformin 500 mg tablet extended release 24 hr 500 mg PO BID ipratropium bromide 21 mcg (0.03 %) spray,non-aerosol 2 spray INTRANASAL TID PRN (Reason: Runny Nose) cholecalciferol (vitamin D3) [Vitamin D3] 25 mcg (1,000 unit) Capsule 25 mcg PO DAILY escitalopram oxalate 10 mg tablet 10 mg PO DAILY dapagliflozin propanediol [Farxiga] 10 mg Tablet 10 mg PO DAILY Rx Instructions: UNABLE TO VERIFY ON EXT MED HX. Trulicity 4.5 mg/0.5 mL pen injector 4.5 mg SUBCUT WK Rx Instructions: MONDAYS Discontinued trazodone 50 mg tablet 150 mg PO HS Discharge Orders: Discharge Order (Routine); Ordered 04/05/25 Ordered By: Ayah Reynoso/Other Patient Handouts: Managing Type 2 Diabetes, 5 Steps for Eating Healthier Admission Data Admit Date/Time: 04/03/25 12:23 Attending Provider: Ayah Sequeira Admit Provider: Pedro Luis Goode Primary Care Provider: Sasha Martin Other Providers: Pedro Luis Goode; Lino Villalobos; Nash Torres
[2025-04-05 15:14] VITALS: PULSE 72
== END 2025-04-05 15:52 | disposition home or self-care (01) | DRG 154 ==
LOC: 2E 22:43 → ED 22:43 → 2E 04-02 03:36